=== PATIENT | male | born 1990 | race Caucasian/White ===

== ENCOUNTER 2020-01-27 00:55 | Emergency (ER) | payer OTHER ==
[~2020-01-27] VITALS: Ht 175.3 cm; Wt 70.9 kg
[~2020-01-27 00:55] MED LIST: ZOFRAN ODT4 MG PO
[2020-01-27 01:04] VITALS: BP 117/75; TEMP 98.3
[2020-01-27] MEDS ORDERED: CEPHALEXIN500 M1 PO (02:19)
[2020-01-27 02:21] VITALS: PULSE 87
== END 2020-01-27 02:20 | disposition home or self-care (01) ==
LOC: COL.ER 00:55
DX: S61.431A Puncture wound without foreign body of right hand, initial encounter (principal); F17.210 Nicotine dependence, cigarettes, uncomplicated; W26.0XXA Contact with knife, initial encounter; Y92.009 Unspecified place in unspecified non-institutional (private) residence as the place of occurrence of the external cause

== ENCOUNTER → 2020-06-05 | Outpatient (CLI) | payer OTHER ==
[~2020-06-05] MED LIST changes: +CEPHALEXIN500 M1 PO
== END ==
LOC: COL.RAD 07:32
DX: K21.00 Gastro-esophageal reflux disease with esophagitis, without bleeding (principal)

== ENCOUNTER 2020-06-13 08:26 | Day surgery (SDC) | payer OTHER ==
[~2020-06-13] VITALS: Ht 175.3 cm; Wt 76.2 kg
[2020-06-13] VITALS (10 sets, daily range): BP systolic 111–125; BP diastolic 52–85; PULSE 72–90; TEMP 97.8–98.2
[~2020-06-13 08:26] MED LIST changes: +PROTONIX 40MG T40 MG PO
--- NOTE | 2020-06-13 19:00 | NUR ---
Patient has done well post op. Vss om room air. He has been up to the bathroom & voided x2. Pain was increased, tylenol did not relieve pain, so norco was given I reviewed side effects with him. He has never had narcotics before. He denies yet passing flatus. Iv to INT. Report to night nurse
--- NOTE | 2020-06-13 21:00 | NUR ---
PT RESTING IN BED. PAIN CONTROLLED WELL WITH NORCO. AMB IN AGUIRRE WITH ESCROW SECRETARY. NO NEEDS AT THIS TIME.
[2020-06-14] VITALS: BP 98/42; PULSE 69; TEMP 97.9
[2020-06-14 05:03] VITALS: BP 111/61; PULSE 73; TEMP 97.8
--- NOTE | 2020-06-14 09:24 | NUR ---
Initial visit; Patient thanked Marine Equipment Design Engineer for looking in on him and letting him know of the availability of spiritual care at our hospital and wished him well.
--- NOTE | 2020-06-14 09:27 | NUR ---
Patient tolerating diet well this morning. No nausea reported. Pain 7/10 due to air in stomach and given warm blankets to apply to shoulder upper chest as well as prn pain meds. Patient was a SBA with gait belt walking around the surgical unit. Patient denied questions this morning. Will continue to monitor.
[2020-06-14 09:30] VITALS: BP 136/85; PULSE 93; TEMP 98.2
[2020-06-14] MEDS ORDERED: NORCO 325 MG-51 TAB PO (11:08)
[2020-06-14 12:35] VITALS: BP 116/68; PULSE 93; TEMP 97.7
--- NOTE | 2020-06-14 14:30 | NUR ---
Patient Health Summary, Discharge Summary, and home meds printed and reviewed with patient and his . Stressed importance of follow up appointment. Belongings gathered by RN/Melissa including phone, silk screen printing racker, wallet, glasses and misc. personal items. Patient transported by RN/Melissa and seatbelted for ride home with . Patient and denied questions.
== END 2020-06-14 14:30 | disposition home or self-care (01) ==
LOC: SDCO 08:26 → JCC 13:20 → SDCO 06-14 14:30
DX: K21.00 Gastro-esophageal reflux disease with esophagitis, without bleeding (principal); K22.70 Barrett's esophagus without dysplasia; Z20.828 Contact with and (suspected) exposure to other viral communicable diseases; F17.210 Nicotine dependence, cigarettes, uncomplicated
CPT/HCPCS: OP; J0690; J1100; J1170; J1885; J2405; J2704; J3010; J3475; J7120

== ENCOUNTER 2020-07-02 23:40 | Emergency (ER) | payer OTHER ==
[~2020-07-02] VITALS: Ht 175.3 cm; Wt 75.0 kg
[~2020-07-02 23:40] MED LIST changes: +NORCO 325 MG-51 TAB PO
[2020-07-02 23:56] VITALS: BP 121/75; TEMP 98.8
[2020-07-03 00:47] VITALS: PULSE 88
== END 2020-07-03 00:49 | disposition home or self-care (01) ==
LOC: COL.ER 23:40
DX: M79.18 Myalgia, other site (principal); F17.200 Nicotine dependence, unspecified, uncomplicated; V49.49XA Driver injured in collision with other motor vehicles in traffic accident, initial encounter

== ENCOUNTER 2020-07-06 17:18 | Emergency (ER) | payer OTHER ==
[~2020-07-06] VITALS: Ht 175.3 cm; Wt 70.5 kg
[2020-07-06] MEDS ORDERED: LIDODERM 5% PATC1 EA TP (17:50)
[2020-07-06] MEDS ORDERED: FLEXERIL 1010 MG/TAB PO (17:50)
[2020-07-06 18:08] LABS: COLLECTION METHOD CLEAN CATCH
[2020-07-06 18:24] LABS: AMORPHOUS CRYSTAL Present /uL; MUCOUS Present /lpf; PH 6 (5-8); SQUAMOUS EPITHELIAL 0-2 /hpf; URINE APPEARANCE Cloudy; URINE BACTERIA None Seen /hpf; URINE BILIRUBIN Negative (NEGATIVE); URINE BLOOD Negative (NEGATIVE); URINE COLOR Yellow; URINE GLUCOSE Negative (NEGATIVE); URINE KETONE Negative (NEGATIVE); URINE LEUKOCYTE ESTERASE Negative (NEGATIVE); URINE NITRATE Negative (NEGATIVE); URINE PROTEIN(semi-quant) 1+ (NEGATIVE)
[2020-07-06 18:30] VITALS: BP 131/74; PULSE 73; TEMP 98.3
== END 2020-07-06 18:34 | disposition home or self-care (01) ==
LOC: COL.ER 17:18
PROVIDERS: Physician Assistant
DX: S39.011A Strain of muscle, fascia and tendon of abdomen, initial encounter (principal); S39.012A Strain of muscle, fascia and tendon of lower back, initial encounter; S61.431A Puncture wound without foreign body of right hand, initial encounter; S13.4XXA Sprain of ligaments of cervical spine, initial encounter; R19.7 Diarrhea, unspecified; R11.10 Vomiting, unspecified; K21.9 Gastro-esophageal reflux disease without esophagitis; F17.200 Nicotine dependence, unspecified, uncomplicated; V48.5XXA Car driver injured in noncollision transport accident in traffic accident, initial encounter